=== PATIENT | male | born 1970 | race Hispanic/Latino ===

== ENCOUNTER 2020-05-20 10:03 | Inpatient (IN) | payer OTHER ==
[~2020-05-20] VITALS: Ht 167.6 cm; Wt 103.7 kg
[2020-05-20 10:30] LABS: BASOPHILS % (AUTO) 0.8 % (0.0-5.0); EOSINOPHILS % (AUTO) 1.1 % (0.0-8.0); HEMATOCRIT 55.9 % (42-54); LYMPHOCYTES % (AUTO) 15.5 % (21.0-51.0); MEAN CORPUSCULAR HEMOGLOBIN 31.1 pg (27.0-33.0); MEAN CORPUSCULAR HGB CONC 33.8 g/dL (32.0-36.0); MEAN CORPUSCULAR VOLUME 91.9 fL (79-99); MONOCYTES % (AUTO) 7.5 % (3.0-13.0); NEUTROPHILS % (AUTO) 74.9 % (40.0-77.0); PLATELET COUNT (AUTO) 244 K/uL (130-400); RED BLOOD CELL COUNT(AUTO) 6.08 MIL/uL (4.50-6.20); RED CELL DISTRIBUTION WIDTH 13.4 % (11.0-15.5); WHITE BLOOD COUNT (AUTO) 6.5 K/uL (4.8-10.8)
[2020-05-20 10:39] LABS: INR 1.02 (0.85-1.15); PROTHROMBIN TIME 10.9 SEC (9.6-11.6)
[2020-05-20 10:41] LABS: PARTIAL THROMBOPLASTIN TIME 25.1 SEC (26.3-35.5)
[2020-05-20 10:41] LABS: APPEARANCE,URINE Clear (CLEAR); BILIRUBIN,URINE Negative (NEGATIVE); COLOR,URINE Dark Yellow (YELLOW); GLUCOSE, URINE (UA) Negative (NEGATIVE); KETONES,URINE Negative (NEGATIVE); LEUKOCYTE ESTERASE ,URINE Trace (NEGATIVE); NITRATE,URINE Negative (NEGATIVE); OCCULT BLOOD,URINE Negative (NEGATIVE); PROTEIN,URINE Trace mg/dL (NEGATIVE)
[2020-05-20 10:48] LABS: CREATININE 1.1 mg/dL (0.5-1.5)
[2020-05-20 10:50] LABS: AMPHET/METH SCREEN,URINE NEGATIVE (NEGATIVE); BARBITURATE SCREEN, URINE NEGATIVE (NEGATIVE); BENZODIAZEPINES SCREEN,URINE NEGATIVE (NEGATIVE); CANNABINOID SCREEN,URINE POSITIVE (NEGATIVE); COCAINE SCREEN,URINE NEGATIVE (NEGATIVE); OPIATE SCREEN,URINE NEGATIVE (NEGATIVE); PHENCYCLIDINE SCREEN,URINE NEGATIVE (NEGATIVE)
[2020-05-20 10:55] LABS: BILIRUBIN,TOTAL 0.7 mg/dL (0.2-1.0); TOTAL PROTEIN, SERUM 8.3 g/dL (6.0-8.3)
[2020-05-20 11:03] LABS: BACTERIA,URINE None Seen /HPF (None Seen); MUCUS,URINE Few LPF (None Seen); WBC,URINE 0-1 /HPF (0-1)
[2020-05-20] MEDS ORDERED: LABETALOL 20 MG/4 ML DISP.SYRIN IV PRN (18:45)
[2020-05-20 19:35] VITALS: BP 163/95
[2020-05-20] MEDS ORDERED: SODIUM CHLORIDE 0.9% 10 ML VIAL IVP PRN (21:00)
[2020-05-20] MEDS: FAMOTIDINE/PF 20 MG/2 ML VIAL IV SCH (23:32)
[2020-05-20 23:45] VITALS: BP 168/99
[2020-05-21 03:39] VITALS: BP 173/79
[2020-05-21 05:29] LABS: HEMATOCRIT 54.7 % (42-54); LYMPHOCYTES % (AUTO) 15.8 % (21.0-51.0); MEAN CORPUSCULAR HEMOGLOBIN 30.5 pg (27.0-33.0); MEAN CORPUSCULAR HGB CONC 33.3 g/dL (32.0-36.0); MEAN CORPUSCULAR VOLUME 91.6 fL (79-99); MONOCYTES % (AUTO) 8.8 % (3.0-13.0); NEUTROPHILS % (AUTO) 71.6 % (40.0-77.0); PLATELET COUNT (AUTO) 233 K/uL (130-400); RED BLOOD CELL COUNT(AUTO) 5.97 MIL/uL (4.50-6.20); RED CELL DISTRIBUTION WIDTH 13.2 % (11.0-15.5); WHITE BLOOD COUNT (AUTO) 7.9 K/uL (4.8-10.8)
[2020-05-21 05:32] LABS: HEMOGLOBIN A1C 5.2 % (4.0-6.0)
[2020-05-21 05:57] LABS: ALBUMIN 3.7 g/dL (3.5-5.0); BILIRUBIN,TOTAL 1.1 mg/dL (0.2-1.0); CREATININE 0.9 mg/dL (0.5-1.5); MAGNESIUM 2.3 mg/dL (1.80-2.40); THYROID STIMULATING HORMONE 1.15 uIU/mL (0.36-3.74); TOTAL PROTEIN, SERUM 7.9 g/dL (6.0-8.3)
[2020-05-21 08:30] VITALS: BP 158/89
[2020-05-21] MEDS: FAMOTIDINE/PF 20 MG/2 ML VIAL IV SCH ×2 (08:38→20:30)
[2020-05-21] MEDS: ATORVASTATIN CALCIUM 20 MG TABLET PO SCH (08:38)
[2020-05-21] MEDS ORDERED: ASPIRIN 81MG TAB.CHEW PO SCH (09:00)
[2020-05-21] MEDS ORDERED: GADODIAMIDE 10 MMOL/20 ML VIAL IV ONE (10:27)
[2020-05-21] MEDS: ASPIRIN 325MG EC TAB 325 MG TABLET.DR PO SCH (11:48)
[2020-05-21 12:00] VITALS: BP 158/82
[2020-05-21] MEDS ORDERED: LIDOCAINE HCL-MPF 1% 2ML VIAL IV PRN (15:00)
[2020-05-21] MEDS ORDERED: POTASSIUM CHLORIDE 20MEQ/100ML 100 ML IV PRN (15:00)
[2020-05-21] MEDS ORDERED: HYDRALAZINE HCL 20 MG/ML VIAL IV PRN (15:00)
[2020-05-21] MEDS ORDERED: ACETAMINOPHEN 325 MG TAB PO PRN (15:00)
[2020-05-21] MEDS ORDERED: MAGNESIUM 2GM PREMIX 50ML 50 ML IV PRN (15:00)
[2020-05-21] MEDS ORDERED: ONDANSETRON HCL 4 MG/2 ML VIAL IVP PRN (15:00)
[2020-05-21] MEDS ORDERED: POTASSIUM CHLORIDE 10% ELIXIR 20 MEQ/15 ML UDCUP PO PRN (15:00)
[2020-05-21] MEDS ORDERED: POTASSIUM CHLORIDE 20 MEQ ERTAB PO PRN (15:00)
[2020-05-21 16:23] VITALS: BP 142/84
[2020-05-21 20:00] VITALS: BP 155/83
[2020-05-22] VITALS (7 sets, daily range): BP systolic 136–160; BP diastolic 61–95
[2020-05-22] MEDS ORDERED: CLOPIDOGREL BISULFATE 75 MG TAB PO SCH (09:00)
[2020-05-22] MEDS: ASPIRIN 325MG EC TAB 325 MG TABLET.DR PO SCH (09:36)
[2020-05-22] MEDS: ATORVASTATIN CALCIUM 20 MG TABLET PO SCH (09:36)
[2020-05-22] MEDS: PANTOPRAZOLE 40 MG/VIAL IV SCH (09:37)
[2020-05-22] MEDS: FAMOTIDINE/PF 20 MG/2 ML VIAL IV SCH ×2 (09:37→20:39)
[2020-05-22] MEDS: LISINOPRIL 5 MG TABLET PO SCH (19:16)
[2020-05-22] MEDS: APIXABAN 5 MG TABLET PO SCH (20:40)
[2020-05-23 03:54] VITALS: BP 135/86
[2020-05-23 06:54] LABS: HEMATOCRIT 53.7 % (42-54); MEAN CORPUSCULAR HEMOGLOBIN 30.4 pg (27.0-33.0); MEAN CORPUSCULAR HGB CONC 33.1 g/dL (32.0-36.0); MEAN CORPUSCULAR VOLUME 91.8 fL (79-99); RED BLOOD CELL COUNT(AUTO) 5.85 MIL/uL (4.50-6.20); RED CELL DISTRIBUTION WIDTH 12.9 % (11.0-15.5); WHITE BLOOD COUNT (AUTO) 7.7 K/uL (4.8-10.8)
[2020-05-23 07:31] LABS: MAGNESIUM 2.3 mg/dL (1.80-2.40); PHOSPHORUS 3.8 mg/dL (2.5-4.9); POTASSIUM 3.7 mmol/L (3.5-5.1)
[2020-05-23] MEDS: FAMOTIDINE/PF 20 MG/2 ML VIAL IV SCH ×2 (08:09→21:05)
[2020-05-23 08:20] VITALS: BP 126/87
[2020-05-23] MEDS: PANTOPRAZOLE 40 MG/VIAL IV SCH (10:05)
[2020-05-23] MEDS: APIXABAN 5 MG TABLET PO SCH ×2 (10:06→21:06)
[2020-05-23] MEDS: ATORVASTATIN CALCIUM 20 MG TABLET PO SCH (10:06)
[2020-05-23] MEDS: LISINOPRIL 5 MG TABLET PO SCH (10:06)
[2020-05-23 12:06] VITALS: BP 122/70
[2020-05-23] MEDS ORDERED: ATOR20TA65 PO (16:17)
[2020-05-23] MEDS ORDERED: LISI-617 PO (16:17)
[2020-05-23] MEDS ORDERED: APIX5TAB PO (16:17)
[2020-05-23] MEDS ORDERED: PANT40TA54 PO (16:20)
[2020-05-23 16:26] VITALS: BP 120/76
[2020-05-23 19:42] VITALS: BP 148/94
[2020-05-23 23:46] VITALS: BP 134/65
[2020-05-24 04:00] VITALS: BP 136/90
[2020-05-24 08:00] VITALS: BP 139/90
[2020-05-24] MEDS: APIXABAN 5 MG TABLET PO SCH (08:30)
[2020-05-24] MEDS: ATORVASTATIN CALCIUM 20 MG TABLET PO SCH (08:30)
[2020-05-24] MEDS: LISINOPRIL 5 MG TABLET PO SCH (08:31)
[2020-05-24] MEDS ORDERED: FAMOTIDINE 20MG TAB 20 MG TAB PO SCH (09:00)
[2020-05-24] MEDS ORDERED: PANTOPRAZOLE SODIUM 40 MG TABLET.DR PO SCH (09:00)
[2020-05-24 11:46] VITALS: BP 130/83
== END 2020-05-24 13:25 | disposition home or self-care (01) | DRG 65 ==
LOC: EDBD 10:03 → EDH 10:03 → OBSVTOIN 10:04 → EDHIP 10:04 → 4CH 18:30
PROVIDERS: ADMIT Internal Medicine Critical Care Medicine; ATTEND Internal Medicine Critical Care Medicine
DX: I63.412 Cerebral infarction due to embolism of left middle cerebral artery (principal); Q21.1 Atrial septal defect; I25.3 Aneurysm of heart; N18.2 Chronic kidney disease, stage 2 (mild); R47.01 Aphasia; Z20.828 Contact with and (suspected) exposure to other viral communicable diseases; I12.9 Hypertensive chronic kidney disease with stage 1 through stage 4 chronic kidney disease, or unspecified chronic kidney disease; R13.0 Aphagia; F17.210 Nicotine dependence, cigarettes, uncomplicated; R29.705 NIHSS score 5; I48.91 Unspecified atrial fibrillation; F12.10 Cannabis abuse, uncomplicated; Z79.01 Long term (current) use of anticoagulants; Z79.899 Other long term (current) drug therapy; Z91.19 Patient's noncompliance with other medical treatment and regimen
CPT/HCPCS: 36415; 70450; 70544; 70549; 70553; 71045; 80048; 80053; 80061; 80305; 81001; 82550; 82948; 83036; 83721; 83735; 84100; 84443; 84484; 85025; 85027; 85610; 85730; 87426; 92522; 92526; 92610; 93005; 93306; 93356; 93880; 97039; A9579; C9113; G0378; J3480; J3490